=== PATIENT | female | born 1980 | race Caucasian/White ===

== ENCOUNTER 2017-10-22 06:47 | Emergency (ER) | payer OTHER ==
[2017-10-22 06:53] VITALS: RESP 16; TEMP 97.1; O2SAT 98
[2017-10-22 07:20] LABS: BASOPHILS % (AUTO) 2 % (0-3); EOSINOPHILS % (AUTO) 4 % (0-9); HEMATOCRIT 38 % (35-47); MEAN CORPUSCULAR HGB CONC 34.6 gm/dl (32.0-36.0); MEAN CORPUSCULAR VOLUME 82 fL (81-99); MONOCYTES % (AUTO) 10.5 % (0-12); NEUTROPHILS % (AUTO) 60.8 % (37-80)
[2017-10-22 07:29] LABS: CALCIUM 8.8 mg/dl (8.5-10.1); POTASSIUM 3.9 mMol/L (3.5-5.1)
[2017-10-22 08:20] VITALS: BP 139/86; PULSE 60
== END 2017-10-22 08:15 | disposition home or self-care (01) | DRG 778 ==
LOC: ED 06:47
DX: O20.0 Threatened abortion (principal); Z3A.01 Less than 8 weeks gestation of pregnancy
CPT/HCPCS: 36415; 80048; 85025; 99284; A6402

== ENCOUNTER 2017-12-17 11:20 | Emergency (ER) | payer OTHER ==
[2017-12-17 11:43] VITALS: BP 123/72; PULSE 89; RESP 18; TEMP 97.9; O2SAT 100
[2017-12-17] MEDS ORDERED: PROPARACAINE HCL 0.5% OPHTHALMIC SOL ONE (11:48)
== END 2017-12-17 12:05 | disposition home or self-care (01) | DRG 125 ==
LOC: ED 11:20
DX: H57.12 Ocular pain, left eye (principal)
CPT/HCPCS: 99282; A9270-GY

== ENCOUNTER 2018-04-15 07:50 | Emergency (ER) | payer OTHER, MEDICAID ==
[2018-04-15 08:11] LABS: APPEARANCE,URINE Clear; BILIRUBIN,URINE NEGATIVE (NEGATIVE); COLOR,URINE Yellow; GLUCOSE, URINE (UA) NEGATIVE (NEGATIVE); KETONES,URINE NEGATIVE (NEGATIVE); LEUKOCYTE ESTERASE ,URINE 1+ (NEGATIVE); NITRATE,URINE NEGATIVE (NEGATIVE); OCCULT BLOOD,URINE NEGATIVE (NEG-TRACE); PH,URINE 6.5; UROBILINOGEN,URINE 0.2 (0.2-1.0 EU)
[2018-04-15 08:14] VITALS: RESP 20
[2018-04-15 08:20] LABS: BACTERIA 1+ (< 1+); CRYSTALS NEGATIVE (0-3 AVE/HPF); RBC,URINE NEG (0-3AV/HPF); WBC,URINE 0-2 (0-5AV/HPF)
[2018-04-15] MEDS ORDERED: SODIUM CHLORIDE 0.9% FLUSH 10 ML SOL IV PRN (08:23)
[2018-04-15] MEDS ORDERED: SODIUM CHLORIDE 0.9% 1000ML 1,000 ML IV ONE (08:23)
[2018-04-15] MEDS ORDERED: BETAMETHASONE 6 MG/ML SUS IM ONE (08:51)
[2018-04-15] MEDS ORDERED: SODIUM CHLORIDE 0.9% 500 ML 500 ML IV SCH (09:00)
[2018-04-15 09:02] LABS: BASOPHILS % (AUTO) 1 % (0-3); EOSINOPHILS % (AUTO) 1 % (0-9); HEMATOCRIT 40 % (35-47); HEMOGLOBIN 13.7 gm/dl (12.0-15.5); MEAN CORPUSCULAR HGB CONC 34.2 gm/dl (32.0-36.0); MEAN CORPUSCULAR VOLUME 88 fL (81-99); MONOCYTES % (AUTO) 6.1 % (0-12); NEUTROPHILS % (AUTO) 76.5 % (37-80)
[2018-04-15] MEDS ORDERED: MAGNESIUM SULFATE 20GM(PREMIX) 20 GM/500 ML SOL IV ONE ×2 (09:07→09:24)
[2018-04-15] MEDS ORDERED: CALCIUM GLUCONATE 10% 100 MG/ML SOL IV PRN (09:07)
[2018-04-15] MEDS ORDERED: AMPICILLIN 1 GM PDS 2 GM in SODIUM CHLORIDE 0.9% 100 ML 100 ML IV ONE (09:15)
[2018-04-15] MEDS ORDERED: CALCIUM GLUCONATE 10% 100 MG/ML SOL IV ONE (09:17)
[2018-04-15] MEDS ORDERED: AMPICILLIN 1 GM PDS ONE (09:17)
[2018-04-15 09:23] LABS: ALBUMIN 2.3 gm/dl (3.4-5.0); BILIRUBIN,TOTAL 0.2 mg/dl (0.2-1.0); CARBON DIOXIDE 25.1 mEq/L (21-32); CREATININE 0.54 mg/dl (0.60-1.00); CRP INFLAMMATORY 0.22 mg/dl (0.00-0.33); MAGNESIUM 1.7 mg/dl (1.8-2.4); POTASSIUM 3.9 mMol/L (3.5-5.1); TOTAL PROTEIN 6.3 gm/dl (6.4-8.2); URIC ACID 3.6 mg/dl (2.6-7.2)
[2018-04-15 10:01] VITALS: BP 128/58; PULSE 67; TEMP 97.5; O2SAT 98
== END 2018-04-15 10:12 | disposition short-term general hospital (02) | DRG 778 ==
LOC: ED 07:50
DX: O60.03 Preterm labor without delivery, third trimester (principal); Z3A.31 31 weeks gestation of pregnancy
CPT/HCPCS: 36415; 59025; 80053; 81001; 83735; 84550; 85025; 87088; 87210; 93005; 96365; 96366; 96372; 99070; 99284; 99285; J0290; J0610; J0702

== ENCOUNTER 2018-04-22 23:29 | Emergency (ER) | payer OTHER, MEDICAID ==
[2018-04-22 23:41] VITALS: O2SAT 97
[2018-04-23 00:20] VITALS: RESP 20; TEMP 96.8
[2018-04-23 00:25] LABS: APPEARANCE,URINE Slightly Cloudy; BILIRUBIN,URINE NEGATIVE (NEGATIVE); COLOR,URINE Yellow; GLUCOSE, URINE (UA) NEGATIVE (NEGATIVE); KETONES,URINE NEGATIVE (NEGATIVE); LEUKOCYTE ESTERASE ,URINE NEGATIVE (NEGATIVE); NITRATE,URINE NEGATIVE (NEGATIVE); OCCULT BLOOD,URINE NEGATIVE (NEG-TRACE); UROBILINOGEN,URINE 0.2 (0.2-1.0 EU)
[2018-04-23 00:30] LABS: BACTERIA NEGATIVE (< 1+); CRYSTALS NEGATIVE (0-3 AVE/HPF); RBC,URINE NEG (0-3AV/HPF); WBC,URINE 0-1 (0-5AV/HPF)
[2018-04-23 00:58] VITALS: BP 126/75; PULSE 72
== END 2018-04-23 01:05 | disposition home or self-care (01) | DRG 781 ==
LOC: ED 23:29
DX: O26.893 Other specified pregnancy related conditions, third trimester (principal); R10.30 Lower abdominal pain, unspecified; Z3A.32 32 weeks gestation of pregnancy
CPT/HCPCS: 59025; 81001; 99283

== ENCOUNTER 2018-04-27 20:09 | Emergency (ER) | payer OTHER, MEDICAID ==
[2018-04-27] MEDS ORDERED: LACTATED RINGERS 1,000 ML IV ONE (20:45)
[2018-04-27] MEDS ORDERED: SODIUM CHLORIDE 0.9% FLUSH 10 ML SOL IV PRN (20:55)
[2018-04-27 21:31] LABS: APPEARANCE,URINE Clear; BILIRUBIN,URINE NEGATIVE (NEGATIVE); COLOR,URINE Yellow; GLUCOSE, URINE (UA) NEGATIVE (NEGATIVE); KETONES,URINE NEGATIVE (NEGATIVE); LEUKOCYTE ESTERASE ,URINE TRACE (NEGATIVE); NITRATE,URINE NEGATIVE (NEGATIVE); OCCULT BLOOD,URINE NEGATIVE (NEG-TRACE); PH,URINE 6.5; UROBILINOGEN,URINE 0.2 (0.2-1.0 EU)
[2018-04-27 21:38] LABS: BACTERIA 1+ (< 1+); CRYSTALS NEGATIVE (0-3 AVE/HPF); RBC,URINE 0-2 (0-3AV/HPF)
[2018-04-27] MEDS: AMOXICILLIN 250 MG CAP PO ONE ×2 (22:08)
[2018-04-27] MEDS ORDERED: LACTATED RINGERS 1,000 ML IV SCH (22:15)
[2018-04-27 22:17] VITALS: BP 130/80; PULSE 82; RESP 20; TEMP 97; O2SAT 96
[2018-04-27] MEDS ORDERED: AMOXICILLIN(FRIDGE) 125/5 ML BOTTLE PO ONE (22:26)
[2018-04-27] MEDS ORDERED: AMOXICILLIN(FRIDGE) 125/5 ML BOTTLE ONE (22:29)
[2018-04-27] MEDS ORDERED: AMOXICILLIN 125/5 ML BOTTLE ONE (22:31)
== END 2018-04-27 23:16 | disposition home or self-care (01) | DRG 781 ==
LOC: ED 20:09
DX: O23.43 Unspecified infection of urinary tract in pregnancy, third trimester (principal); O47.03 False labor before 37 completed weeks of gestation, third trimester; O23.593 Infection of other part of genital tract in pregnancy, third trimester; N76.0 Acute vaginitis; Z3A.33 33 weeks gestation of pregnancy
CPT/HCPCS: 59025; 81001; 87088; 96365; 96366; 99284; 99285; A9270-GY

== ENCOUNTER 2018-05-14 01:46 | Inpatient (IN) | payer OTHER, MEDICAID ==
[2018-05-14] MEDS ORDERED: SODIUM CHLORIDE 0.9% 1000ML 1,000 ML IV ONE (02:58)
[2018-05-14 03:50] LABS: APPEARANCE,URINE Clear; BILIRUBIN,URINE NEGATIVE (NEGATIVE); COLOR,URINE Yellow; GLUCOSE, URINE (UA) NEGATIVE (NEGATIVE); KETONES,URINE NEGATIVE (NEGATIVE); LEUKOCYTE ESTERASE ,URINE NEGATIVE (NEGATIVE); NITRATE,URINE NEGATIVE (NEGATIVE); OCCULT BLOOD,URINE TRACE INTACT (NEG-TRACE); PH,URINE 5.5; UROBILINOGEN,URINE 0.2 (0.2-1.0 EU)
[2018-05-14 04:04] LABS: BACTERIA 1+ (< 1+); CRYSTALS NEGATIVE (0-3 AVE/HPF); EPITHELIAL CELLS 0-1 (SQUAMOUS); RBC,URINE 0-1 (0-3AV/HPF); WBC,URINE 0-1 (0-5AV/HPF)
[2018-05-14] MEDS ORDERED: CITRIC ACID/SODIUM CITRATE SOL PO ONE ×2 (04:20→04:23)
[2018-05-14] MEDS: LACTATED RINGERS 1,000 ML IV SCH ×4 (04:31→22:18)
[2018-05-14 04:39] LABS: BASOPHILS % (AUTO) 1 % (0-3); EOSINOPHILS % (AUTO) 1 % (0-9); HEMATOCRIT 41 % (35-47); HEMOGLOBIN 13.7 gm/dl (12.0-15.5); LYMPHOCYTES % (AUTO) 25.2 % (10-50); MEAN CORPUSCULAR HEMOGLOBIN 29.7 pg (27.0-32.0); MEAN CORPUSCULAR HGB CONC 33.6 gm/dl (32.0-36.0); MEAN CORPUSCULAR VOLUME 89 fL (81-99); MONOCYTES % (AUTO) 7.1 % (0-12); NEUTROPHILS % (AUTO) 65.7 % (37-80)
[2018-05-14] MEDS ORDERED: MORPHINE SULFATE 0.5 MG/ML SOL ONE (04:51)
[2018-05-14] MEDS ORDERED: OXYTOCIN 10000 MU/ML SOL ONE (04:51)
[2018-05-14] MEDS ORDERED: FENTANYL 100MCG/2ML SOL ONE (04:52)
[2018-05-14] MEDS ORDERED: [UNRECOGNIZED DRUG - OTHER] IV ONE (05:29)
[2018-05-14] MEDS ORDERED: CEFAZOLIN SODIUM 1 GM PDS ONE ×2 (05:35→11:20)
[2018-05-14] MEDS ORDERED: EPHEDRINE SULFATE 50 MG/ML SOL ONE (05:35)
[2018-05-14 05:42] LABS: ABO B; ANTIBODY SCREEN Negative; RH TYPE Positive
[2018-05-14] MEDS ORDERED: WITCH HAZEL 1 EA PAD TOP PRN (06:28)
[2018-05-14] MEDS ORDERED: ONDANSETRON HCL 4 MG/2 ML SOL IV PRN (06:28)
[2018-05-14] MEDS ORDERED: BENZOCAINE/MENTHOL 1 SPR TOP PRN (06:28)
[2018-05-14] MEDS ORDERED: FLEET ENEMA PR PRN (06:28)
[2018-05-14] MEDS ORDERED: METHYLERGONOVINE MALEATE 0.2 MG TAB PO PRN (06:28)
[2018-05-14] MEDS ORDERED: TEMAZEPAM 15MG 15 MG CAP PO PRN (06:28)
[2018-05-14] MEDS ORDERED: BISACODYL 10 MG SUP PR PRN (06:28)
[2018-05-14] MEDS ORDERED: DIPHENHYDRAMINE 25 MG CAP PO PRN (06:28)
[2018-05-14] MEDS ORDERED: KETOROLAC TROMETHAMINE 30 MG/ML SOL IV PRN (06:28)
[2018-05-14] MEDS: DOCUSATE SODIUM 100 MG SGL PO SCH ×2 (08:15→20:37)
[2018-05-14] MEDS: APAP/HYDROCODONE 1 EACH TABLET PO PRN ×3 (08:15→20:38)
[2018-05-14] MEDS: CEFAZOLIN (PREMIX) 1 GM 1 GM/50 ML SOL IV SCH ×2 (11:32→11:54)
[2018-05-14] MEDS: IBUPROFEN 600 MG TAB PO PRN (12:52)
[2018-05-14] MEDS ORDERED: APAP/HYDROCODONE 1 EACH TABLET ONE (20:23)
[2018-05-14 20:42] VITALS: RESP 18
[2018-05-15] MEDS: APAP/HYDROCODONE 1 EACH TABLET PO PRN ×4 (02:33→16:08)
[2018-05-15] MEDS: SODIUM CHLORIDE 0.9% FLUSH 10 ML SOL IV SCH ×2 (06:17→14:14)
[2018-05-15] MEDS: DOCUSATE SODIUM 100 MG SGL PO SCH (08:27)
[2018-05-15] MEDS: IBUPROFEN 600 MG TAB PO PRN ×2 (08:27→14:29)
[2018-05-15] MEDS ORDERED: MULTIVITAMIN2 1 EA TAB PO SCH (09:00)
[2018-05-15] MEDS ORDERED: FOLIC ACID 1 MG TAB PO SCH (09:00)
[2018-05-15 14:43] VITALS: BP 132/85; PULSE 92; TEMP 99.1; O2SAT 99
== END 2018-05-15 18:15 | disposition home or self-care (01) | DRG 766 ==
LOC: ED 01:46 → OB 04:16
PROVIDERS: ADMIT Family Medicine; ATTEND Family Medicine
PROC: 10D00Z1 Extraction of Products of Conception, Low, Open Approach (ICD-10-PCS; principal; 2018-05-14 04:53)
DX: O82 Encounter for cesarean delivery without indication (principal); Z37.0 Single live birth; O80 Encounter for full-term uncomplicated delivery; Z3A.35 35 weeks gestation of pregnancy
CPT/HCPCS: 36415; 59025; 81001; 84112; 85018; 85025; 86850; 86900; 86901; 99070; 99284; J0690; J2274; J2590; J3010; A9270-GY; J3490

== ENCOUNTER 2019-03-30 16:36 | Emergency (ER) | payer OTHER, MEDICAID | END 2019-03-30 18:11 | disposition home or self-care (01) | LOC: ED 16:36 ==